=== PATIENT | female | born 1985 | race Caucasian/White ===

== ENCOUNTER 2017-03-06 16:23 | Emergency (ER) | payer OTHER ==
[~2017-03-06] VITALS: Ht 157.5 cm; Wt 57.6 kg
[2017-03-06 19:05] VITALS: BP 122/71
== END 2017-03-06 19:05 | disposition home or self-care (01) ==
LOC: ED 16:23
DX: K59.00 Constipation, unspecified (principal); Z79.899 Other long term (current) drug therapy
CPT/HCPCS: J1885

== ENCOUNTER 2017-04-21 20:25 | Emergency (ER) | payer OTHER ==
[2017-04-21 22:00] VITALS: BP 120/80
== END 2017-04-21 22:00 | disposition home or self-care (01) ==
LOC: ED 20:25
DX: T78.49XA Other allergy, initial encounter (principal); X58.XXXA Exposure to other specified factors, initial encounter
CPT/HCPCS: J1100; Q0163